=== PATIENT | male | born 1975 | race African-American/Black ===

== ENCOUNTER 2018-02-04 03:05 | Emergency (ER) | payer OTHER ==
[~2018-02-04] VITALS: Ht 182.9 cm; Wt 86.2 kg
--- NOTE | ~2018-02-04 | EKG ---
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 02/04/18 1057 0318 0318 Benjamín Meyers MD, FACC /EPI
[~2018-02-04 03:05] MED LIST: HYDROCODONE-AP1 EAC6 PO
[2018-02-04] MEDS ORDERED: PROTONIX40 M1 PO (03:15)
[2018-02-04] MEDS ORDERED: COUMADIN 2 MG TA2 M1 PO (03:16)
[2018-02-04] MEDS ORDERED: COUMADIN 5 MG TA5 M1 PO (03:18)
[2018-02-04 03:43] LABS: HEMATOCRIT 35.4 % (42.0-52.0); HEMOGLOBIN 11.2 gm/dL (14.0-18.0); MCH 20.2 pg (26.0-34.0); MCHC 31.7 g/dL (28.0-37.0); MCV 63.7 fL (80.0-100.0); PLATELET COUNT 606 thou/uL (150-400); RBC 5.55 mil/uL (4.50-6.00); RDW 23.4 % (10.5-14.5); WBC 6.8 thou/uL (4.0-11.0)
[2018-02-04 03:49] LABS: ANION GAP 12 mmol/L (7-16); BUN 10 mg/dL (7-18); CHLORIDE 101 mmol/L (98-107); CO2 24 mmol/L (21-32); CREATININE 1.2 mg/dL (0.7-1.3); GLUCOSE 115 mg/dL (74-106); POTASSIUM 3.4 mmol/L (3.5-5.1); SODIUM 137 mmol/L (136-145)
[2018-02-04 03:57] LABS: SGOT 32 U/L (15-37); SGPT 31 U/L (30-65); TOTAL BILIRUBIN 0.2 mg/dL (<0.1-1.0); TOTAL PROTEIN 8.2 g/dL (6.4-8.2); TROPONIN-I <0.06 ng/mL (<0.06)
[2018-02-04 04:50] LABS: ABSOLUTE NEUTROPHILS 4.5 thou/uL (1.4-8.2)
[2018-02-04 04:51] LABS: HYPOCHROMASIA 3+
[2018-02-04 04:52] LABS: ANISOCYTOSIS 3+; MICROCYTES 3+; OVALOCYTES 1+; POIKILOCYTOSIS 1+; POLYCHROMASIA 1+
[2018-02-04 04:53] LABS: LARGE PLATELETS FEW; TOXIC GRANULATION 1+
[2018-02-04 05:14] VITALS: BP 150/101
== END 2018-02-04 11:07 | disposition home or self-care (01) ==
LOC: ER 03:05
PROVIDERS: Emergency Medicine
DX: R00.2 Palpitations (principal); F15.10 Other stimulant abuse, uncomplicated; I10 Essential (primary) hypertension